=== PATIENT | female | born 1980 | race Caucasian/White ===

== ENCOUNTER 2017-08-17 14:52 | Emergency (ER) | payer OTHER, MEDICAID ==
[~2017-08-17] VITALS: Ht 160 cm; Wt 72.6 kg
[~2017-08-17 14:52] MED LIST: ACETAMINOPHEN-1 EAC1 PO; ALLEGRA-D 24 H1 EACH PO; AMOXICILLIN 50500 MG PO; AMOXICILLIN875 MG PO; ANUSOL-HC30 GM RC; BACTRIM DS TAB1 EACH PO; BUTALB-APAP-CA1 EACH PO; CARAFATE1 GM PO; CIPROFLOXACIN500 M1 PO; CORTISPORIN OTI10 M2 OT; CYCLOBENZAPRINE5 MG PO; FLEXERIL; FLEXERIL PO; HYDROCODON-ACE1 EAC7 PO; HYDROCODONE-APA1 TA1 PO; IBUPROFEN 800800 MG PO; KEFLEX500 MG PO; LIORESAL 10 MG10 MG PO; MEDROL DOSPAK21 TA1 PO; NAPROSYN500 MG; NOHOMEMEDICATIONS; NORCO 5-325 TA1 EAC1 PO; NORCO 5-325 TA1 EACH; NORCO 5-325 TA1 EACH PO; ONDANSETRON HCL4 M2 PO; PHENERGAN 25 MG25 MG PO; PREDNISONE 20 M20 M1 PO; PREDNISONE 20 M20 MG PO; PROTONIX40 M1 PO; PYRIDIUM200 MG PO; ROBAXIN 750 MG750 M1; ROBAXIN500 MG PO; TESSALON PERLE100 MG; TRAMADOL 50 MG50 MG; TUCKS MEDICATE1 EAC1 TP; TYLENOL325 MG PO; ULTRAM 50MG TAB50 MG; ULTRAM 50MG TAB50 MG PO; VENTOLIN HFA 1818 GM INH; ZPAK PO
[2017-08-17 16:17] LABS: URINE BILIRUBIN NEGATIVE (Negative); URINE BLOOD 3+ (Negative); URINE CLARITY CLEAR; URINE GLUCOSE-RANDOM NEGATIVE (Negative); URINE KETONES NEGATIVE (Negative); URINE LEUKOCYTES-REFLEX TRACE (Negative); URINE NITRITE-REFLEX NEGATIVE (Negative); URINE PROTEIN NEGATIVE (Negative); URINE SPECIFIC GRAVITY <= 1.005 (1.005-1.030); URINE UROBILINOGEN 0.2 E.U./dl (0.2-1.0)
[2017-08-17 16:20] LABS: URINE COLOR PINK
[2017-08-17 16:44] LABS: ABSOLUTE BASOPHILS 0.1 thou/uL (0.0-0.2); ABSOLUTE EOSINOPHILS 0.1 thou/uL (0.0-0.7); ABSOLUTE LYMPHOCYTES 2.6 thou/uL (0.8-5.3); ABSOLUTE MONOCYTES 0.8 thou/uL (0.0-1.2); ABSOLUTE NEUTROPHILS 10.9 thou/uL (1.6-8.1); HEMATOCRIT 43.5 % (37.0-47.0); HEMOGLOBIN 14.6 gm/dL (12.0-15.0); LYMPHOCYTES 17.9 %; MCH 28.7 pg (26.0-34.0); MCHC 33.5 g/dL (28.0-37.0); MCV 85.6 fL (80.0-100.0); MONOCYTES 5.7 %; MPV 8.2 fl. (7.2-11.1); NUCLEATED RBCS 0 /100WBC; PLATELET COUNT* 317 thou/uL (150-400); POLYS 74.4 %; RBC 5.08 mil/uL (4.20-5.00); RDW-CV 15.1 % (10.5-14.5); WBC 14.7 thou/uL (4.0-11.0)
[2017-08-17 16:47] LABS: CASTS None Seen /LPF (None Seen); CRYSTALS None Seen /LPF (None Seen); MUCUS None Seen strn/LPF (None Seen); SQUAMOUS >10 Many /LPF (0-3); URINE RBC >20 Many /HPF (0-2); URINE WBC-REFLEX 0-5 Rare /HPF (0-5)
[2017-08-17 16:48] LABS: BACTERIA-REFLEX 1-9 Few /HPF (None Seen)
[2017-08-17 16:52] LABS: ANION GAP 12 mmol/L (7-16); BUN 8 mg/dL (7-18); CALCIUM 9.2 mg/dL (8.5-10.1); CHLORIDE 102 mmol/L (98-107); CO2 25 mmol/L (21-32); GLUCOSE 89 mg/dL (70-99); POTASSIUM 3.8 mmol/L (3.5-5.1); SODIUM 139 mmol/L (136-145)
[2017-08-17 16:56] LABS: APTT 28.1 Seconds (25.0-31.3); PROTIME 9.6 Seconds (9.20-11.50)
[2017-08-17 16:59] LABS: ALBUMIN 3.7 g/dL (3.4-5.0); ALKALINE PHOSPHATASE 88 U/L (46-116); LIPASE 86 U/L (73-393); SGOT 16 U/L (15-37); SGPT 41 U/L (30-65); TOTAL BILIRUBIN 0.3 mg/dL (<0.1-1.0); TOTAL PROTEIN 7.7 g/dL (6.4-8.2); TROPONIN-I LEVEL <0.06 ng/mL (<0.06)
[2017-08-17] MEDS ORDERED: PRILOSEC OTC20 MG PO (19:18)
[2017-08-17 19:31] VITALS: BP 106/68
--- NOTE | 2017-08-18 12:06 | EKG ---
[place] [address] ELECTROCARDIOGRAM REPORT Name: BAO STEWARD NILAM [id number] Admission: 08/17/17 Attend Phys: Discharge: 08/17/17 Date of : 76 Report #: [id number] THIS REPORT FOR: //name// 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 08/18/17 1206 1458 1458 Yaniv Oconnell MD, [facility] /EPI
== END 2017-08-17 19:32 | disposition home or self-care (01) ==
LOC: M.ERS 14:52
PROVIDERS: Nurse Practitioner Family
DX: G43.909 Migraine, unspecified, not intractable, without status migrainosus (principal); K21.9 Gastro-esophageal reflux disease without esophagitis; F17.210 Nicotine dependence, cigarettes, uncomplicated

== ENCOUNTER 2017-10-27 22:11 | Emergency (ER) | payer OTHER, MEDICAID ==
[~2017-10-27] VITALS: Ht 160 cm; Wt 90.7 kg
[~2017-10-27 22:11] MED LIST changes: +PRILOSEC OTC20 MG PO
[2017-10-27] MEDS ORDERED: IBUPROFEN 800800 M1 (22:19)
[2017-10-27] MEDS ORDERED: PERCOCET (22:20)
[2017-10-27] MEDS ORDERED: ZANTAC 150MG T150 MG PO (23:01)
[2017-10-27] MEDS ORDERED: CARAFATE 1 GM TA1 G1 PO (23:01)
[2017-10-27] MEDS ORDERED: ZOFRAN ODT4 MG PO (23:01)
[2017-10-27 23:49] VITALS: BP 105/66
== END 2017-10-27 23:49 | disposition home or self-care (01) ==
LOC: M.ERS 22:11
DX: J06.9 Acute upper respiratory infection, unspecified (principal); G43.909 Migraine, unspecified, not intractable, without status migrainosus; F17.210 Nicotine dependence, cigarettes, uncomplicated; Z90.710 Acquired absence of both cervix and uterus

== ENCOUNTER 2018-08-28 11:33 | Emergency (ER) | payer OTHER ==
[~2018-08-28] VITALS: Ht 160 cm; Wt 84.4 kg
[~2018-08-28 11:33] MED LIST changes: +CARAFATE 1 GM TA1 G1 PO; +IBUPROFEN 800800 M1; +PERCOCET; +ZANTAC 150MG T150 MG PO; +ZOFRAN ODT4 MG PO
[2018-08-28] MEDS ORDERED: PROMETH-CODEIN 65 ML PO (12:05)
[2018-08-28] MEDS ORDERED: KEFLEX500 M1 PO (12:08)
[2018-08-28 12:11] VITALS: BP 139/61
== END 2018-08-28 12:13 | disposition home or self-care (01) ==
LOC: M.ERS 11:33
DX: J06.9 Acute upper respiratory infection, unspecified (principal); H66.91 Otitis media, unspecified, right ear; G43.909 Migraine, unspecified, not intractable, without status migrainosus; F17.210 Nicotine dependence, cigarettes, uncomplicated; Z90.710 Acquired absence of both cervix and uterus; Z98.890 Other specified postprocedural states

== ENCOUNTER 2018-10-02 21:29 | Emergency (ER) | payer BC ==
[~2018-10-02] VITALS: Ht 160 cm; Wt 83.5 kg
[~2018-10-02 21:29] MED LIST changes: +KEFLEX500 M1 PO; +PROMETH-CODEIN 65 ML PO
[2018-10-02 21:36] VITALS: BP 136/76
[2018-10-02] MEDS ORDERED: ORADENT 0.1% DEN5 G1 TOP (21:48)
[2018-10-02] MEDS ORDERED: MEDROLDOSEPACK PO (21:48)
== END 2018-10-02 21:57 | disposition home or self-care (01) ==
LOC: M.ERS 21:29
DX: L50.9 Urticaria, unspecified (principal); F17.210 Nicotine dependence, cigarettes, uncomplicated; G43.909 Migraine, unspecified, not intractable, without status migrainosus; Z90.710 Acquired absence of both cervix and uterus

== ENCOUNTER 2019-07-19 20:22 | Emergency (ER) | payer OTHER ==
[~2019-07-19] VITALS: Ht 160 cm; Wt 81.7 kg
[~2019-07-19 20:22] MED LIST changes: +MEDROLDOSEPACK PO; +NORCO 7.5-3251 EACH PO; +ORADENT 0.1% DEN5 G1 TOP; +SSD CREAM 1% 5050 GM TOP
[2019-07-19 20:59] LABS: INFLUENZA A ANTIGEN Negative (Negative); INFLUENZA B ANTIGEN Negative (Negative)
[2019-07-19 21:32] LABS: ABSOLUTE BASOPHILS 0.1 thou/uL (0.0-0.2); ABSOLUTE EOSINOPHILS 0.4 thou/uL (0.0-0.7); ABSOLUTE LYMPHOCYTES 4.2 thou/uL (0.8-5.3); ABSOLUTE MONOCYTES 0.9 thou/uL (0.0-1.2); ABSOLUTE NEUTROPHILS 9.8 thou/uL (1.6-8.1); BASOPHILS 0.8 %; EOSINOPHILS 2.4 %; HEMATOCRIT 41.9 % (37.0-47.0); HEMOGLOBIN 14.8 gm/dL (12.0-15.0); LYMPHOCYTES 27.5 %; MCHC 35.4 g/dL (28.0-37.0); MCV 84.8 fL (80.0-100.0); MONOCYTES 5.7 %; MPV 8.4 fl. (7.2-11.1); NUCLEATED RBCS 0 /100WBC; PLATELET COUNT* 288 thou/uL (150-400); POLYS 63.6 %; RBC 4.94 mil/uL (4.20-5.00); RDW-CV 14.3 % (10.5-14.5); WBC 15.4 thou/uL (4.0-11.0)
[2019-07-19 21:38] LABS: CALCIUM 9.1 mg/dL (8.5-10.1)
[2019-07-19 21:54] LABS: ALBUMIN 3.7 g/dL (3.4-5.0); TOTAL BILIRUBIN 0.2 mg/dL (<0.1-1.0); TOTAL PROTEIN 7.5 g/dL (6.4-8.2)
[2019-07-19] MEDS ORDERED: FLEXERIL PO (22:15)
[2019-07-19] MEDS ORDERED: AZITHROMYCIN 2250 MG PO (22:15)
[2019-07-19 22:43] VITALS: BP 142/81
--- NOTE | 2019-07-20 10:16 | EKG ---
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1980 Requested By: Pratima Flores Order Number: [id number] MD: Leroy Alcala Measurements Intervals [place] Rate: 101 P: 57 TN: 139 QRS: 54 QRSD: 77 T: 19 QT: 325 QTc: 422 Interpretive Statements Sinus tachycardia Probable left atrial enlargement Compared to ECG 08/17/2017 14:58:59 Sinus rhythm no longer present Electronically Signed On 07-20-2019 10:15:14 CDT by Leroy Alcala [email or web address] <ELECTRONICALLY SIGNED> By: eLroy Alcala MD, [facility] 07/20/19 1015 16 16 Leroy Alcala MD, [facility] /EPI
== END 2019-07-19 22:44 | disposition home or self-care (01) ==
LOC: M.ERS 20:22
PROVIDERS: Physician Assistant
DX: J40 Bronchitis, not specified as acute or chronic (principal); D72.829 Elevated white blood cell count, unspecified; M54.6 Pain in thoracic spine; G43.909 Migraine, unspecified, not intractable, without status migrainosus; F17.210 Nicotine dependence, cigarettes, uncomplicated; Z98.51 Tubal ligation status; Z90.710 Acquired absence of both cervix and uterus

== ENCOUNTER 2019-09-15 20:47 | Emergency (ER) | payer MEDICAID ==
[~2019-09-15] VITALS: Ht 160 cm; Wt 81.7 kg
[~2019-09-15 20:47] MED LIST changes: +AZITHROMYCIN 2250 MG PO
[2019-09-15] MEDS ORDERED: INDOMETHACIN 2525 MG PO (21:43)
[2019-09-15 21:52] VITALS: BP 132/69
== END 2019-09-15 21:52 | disposition home or self-care (01) ==
LOC: M.ERS 20:47
DX: M76.9 Unspecified enthesopathy, lower limb, excluding foot (principal); G43.909 Migraine, unspecified, not intractable, without status migrainosus; F17.210 Nicotine dependence, cigarettes, uncomplicated; Z90.710 Acquired absence of both cervix and uterus; Z98.51 Tubal ligation status

== ENCOUNTER 2019-09-28 20:23 | Emergency (ER) | payer OTHER, MEDICAID ==
[~2019-09-28] VITALS: Ht 160 cm; Wt 86.2 kg
[~2019-09-28 20:23] MED LIST changes: +INDOMETHACIN 2525 MG PO
[2019-09-28] MEDS ORDERED: TRAMADOL 50 MG50 MG PO (21:21)
[2019-09-28] MEDS ORDERED: FLEXERIL PO (21:21)
[2019-09-28] MEDS ORDERED: INDOMETHACIN 2525 MG PO (21:21)
[2019-09-28] MEDS ORDERED: LIDODERM1 EACH TOP (21:22)
[2019-09-28 22:06] VITALS: BP 129/76
--- NOTE | 2019-09-30 09:00 | EKG ---
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
== END 2019-09-28 22:07 | disposition home or self-care (01) ==
LOC: M.ERS 20:23
DX: M54.6 Pain in thoracic spine (principal); M25.512 Pain in left shoulder; G43.909 Migraine, unspecified, not intractable, without status migrainosus; F17.210 Nicotine dependence, cigarettes, uncomplicated; Z98.51 Tubal ligation status; Z90.710 Acquired absence of both cervix and uterus

== ENCOUNTER 2020-01-12 15:32 | Emergency (ER) | payer OTHER, MEDICAID ==
[~2020-01-12] VITALS: Ht 160 cm; Wt 81.7 kg
[~2020-01-12 15:32] MED LIST changes: +LIDODERM1 EACH TOP; +TRAMADOL 50 MG50 MG PO
[2020-01-12] MEDS ORDERED: ANTIDEPRESSANT (16:02)
[2020-01-12] MEDS ORDERED: HIGH CHOLESTEROL (16:02)
[2020-01-12] MEDS ORDERED: CRESTOR10 MG PO (16:18)
[2020-01-12] MEDS ORDERED: FLUOXETINE HCL40 MG PO (16:18)
[2020-01-12 16:43] LABS: INFLUENZA A ANTIGEN Negative (Negative); INFLUENZA B ANTIGEN Negative (Negative)
[2020-01-12] MEDS ORDERED: ALLEGRA-D 24 H1 EACH PO (16:56)
[2020-01-12 17:26] VITALS: BP 117/67
== END 2020-01-12 17:27 | disposition home or self-care (01) ==
LOC: M.ERS 15:32
PROVIDERS: Nurse Practitioner Family
DX: J32.0 Chronic maxillary sinusitis (principal); Z20.828 Contact with and (suspected) exposure to other viral communicable diseases; G43.909 Migraine, unspecified, not intractable, without status migrainosus; F17.210 Nicotine dependence, cigarettes, uncomplicated; Z98.51 Tubal ligation status; Z90.710 Acquired absence of both cervix and uterus

== ENCOUNTER 2020-05-17 21:41 | Emergency (ER) | payer OTHER, MEDICAID ==
[~2020-05-17] VITALS: Ht 160 cm; Wt 81.7 kg
[~2020-05-17 21:41] MED LIST changes: +ANTIDEPRESSANT; +CRESTOR10 MG PO; +FLUOXETINE HCL40 MG PO; +HIGH CHOLESTEROL
[2020-05-17] MEDS ORDERED: TORADOL 10 MG T10 MG PO (22:33)
[2020-05-17] MEDS ORDERED: MEDROLDOSEPACK PO (22:33)
[2020-05-17 22:53] VITALS: BP 117/80
== END 2020-05-17 22:54 | disposition home or self-care (01) ==
LOC: M.ERS 21:41
DX: G43.909 Migraine, unspecified, not intractable, without status migrainosus (principal); F17.210 Nicotine dependence, cigarettes, uncomplicated; Z98.51 Tubal ligation status; Z90.710 Acquired absence of both cervix and uterus; M54.2 Cervicalgia

== ENCOUNTER 2020-08-03 21:45 | Emergency (ER) | payer OTHER, MEDICAID ==
[~2020-08-03] VITALS: Ht 160 cm; Wt 86.2 kg
[~2020-08-03 21:45] MED LIST changes: +TORADOL 10 MG T10 MG PO
[2020-08-03] MEDS ORDERED: TRAMADOL 50 MG50 MG PO (23:23)
[2020-08-03 23:30] VITALS: BP 108/65
== END 2020-08-03 23:31 | disposition home or self-care (01) ==
LOC: M.ERS 21:45
DX: M79.672 Pain in left foot (principal); G43.909 Migraine, unspecified, not intractable, without status migrainosus; F17.210 Nicotine dependence, cigarettes, uncomplicated; Z90.710 Acquired absence of both cervix and uterus; Z98.51 Tubal ligation status

== ENCOUNTER 2020-10-13 22:09 | Emergency (ER) | payer OTHER, MEDICAID ==
[~2020-10-13] VITALS: Ht 160 cm; Wt 92.5 kg
[2020-10-13] MEDS ORDERED: LIPITOR 20 MG T20 M1 PO (22:27)
[2020-10-13] MEDS ORDERED: NORCO5 PO (22:27)
[2020-10-14] MEDS ORDERED: MOBIC15 MG PO (00:23)
[2020-10-14] MEDS ORDERED: ACETAMINOPHEN-1 EAC2 PO (00:23)
[2020-10-14 00:32] VITALS: BP 132/78
== END 2020-10-14 00:32 | disposition home or self-care (01) ==
LOC: M.ERS 22:09
DX: M54.12 Radiculopathy, cervical region (principal); F17.210 Nicotine dependence, cigarettes, uncomplicated; G43.909 Migraine, unspecified, not intractable, without status migrainosus; Z90.710 Acquired absence of both cervix and uterus; Z79.899 Other long term (current) drug therapy; Z91.041 Radiographic dye allergy status

== ENCOUNTER 2021-03-29 22:23 | Emergency (ER) | payer OTHER, MEDICAID ==
[~2021-03-29] VITALS: Ht 160 cm; Wt 86.2 kg
[~2021-03-29 22:23] MED LIST changes: +ACETAMINOPHEN-1 EAC2 PO; +LIPITOR 20 MG T20 M1 PO; +MOBIC15 MG PO; +NORCO5 PO
[2021-03-29] MEDS ORDERED: MELOXICAM15 MG PO (23:25)
[2021-03-29] MEDS ORDERED: BACLOFEN 10MG T10 MG PO (23:25)
[2021-03-29 23:31] VITALS: BP 125/83
== END 2021-03-29 23:32 | disposition home or self-care (01) ==
LOC: M.ERS 22:23
DX: M54.12 Radiculopathy, cervical region (principal); G43.909 Migraine, unspecified, not intractable, without status migrainosus; F32.9 Major depressive disorder, single episode, unspecified; F17.210 Nicotine dependence, cigarettes, uncomplicated; Z79.899 Other long term (current) drug therapy; Z98.51 Tubal ligation status; Z90.710 Acquired absence of both cervix and uterus; Z91.041 Radiographic dye allergy status

== ENCOUNTER 2021-06-10 03:17 | Emergency (ER) | payer OTHER, MEDICAID ==
[~2021-06-10] VITALS: Ht 160 cm; Wt 81.7 kg
[~2021-06-10 03:17] MED LIST changes: +BACLOFEN 10MG T10 MG PO; +MELOXICAM15 MG PO
[2021-06-10] MEDS ORDERED: AMITRIPTYLINE H10 M1 PO (03:37)
[2021-06-10] MEDS ORDERED: PROAIR HFA8.5 GM INH (04:58)
[2021-06-10 05:02] VITALS: BP 111/70
--- NOTE | 2021-06-10 10:37 | EKG ---
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1980 Requested By: Jacinda Mendoza Order Number: [id number] MD: Leroy Alcala Measurements Intervals [place] Rate: 101 P: 62 [place]: 144 QRS: 65 QRSD: 81 T: 18 QT: 342 QTc: 444 Interpretive Statements Sinus tachycardia Consider left atrial enlargement Compared to ECG 09/28/2019 20:50:07 Sinus rhythm no longer present Electronically Signed On 06-10-2021 10:36:57 MODEL TECHNICIAN by Leroy Alcala [email or web address] <ELECTRONICALLY SIGNED> By: Leroy Alcala MD, [facility] 06/10/21 1036 0414 0414 Leroy Alcala MD, [facility] /EPI
== END 2021-06-10 05:03 | disposition home or self-care (01) ==
LOC: M.ERS 03:17
DX: R05.9 Cough, unspecified (principal); R07.89 Other chest pain; G43.909 Migraine, unspecified, not intractable, without status migrainosus; F32.9 Major depressive disorder, single episode, unspecified; Z98.51 Tubal ligation status; Z90.710 Acquired absence of both cervix and uterus; Z98.890 Other specified postprocedural states; Z79.899 Other long term (current) drug therapy; Z91.041 Radiographic dye allergy status; F17.210 Nicotine dependence, cigarettes, uncomplicated